=== PATIENT | male | born 1960 | race African-American/Black ===

== ENCOUNTER 2020-04-01 12:08 | Inpatient (IN) | payer OTHER ==
[2020-04-01 13:09] VITALS: BMI 26.3
[2020-04-01] MEDS ORDERED: NICOTINE POLACRILEX 2 MG GUM BUC PRN (13:17)
[2020-04-01] MEDS ORDERED: MAG HYDROX/AL HYDROX/SIMETH 30 ML UNIT-DOSE CUP PO PRN (13:17)
[2020-04-01] MEDS ORDERED: MAGNESIUM CITRATE 300 ML BOTTLE PO PRN (13:17)
[2020-04-01] MEDS ORDERED: MENTHOL/PHENOL 1 EACH UD MM PRN (13:17)
[2020-04-01] MEDS ORDERED: IBUPROFEN 400 MG TABLET (FP) PO PRN (13:17)
[2020-04-01] MEDS ORDERED: ACETAMINOPHEN 325 MG TABLET (FP) PO PRN ×2 (13:17)
[2020-04-01] MEDS ORDERED: BISMUTH SUBSALICYLATE 524 MG/30 ML UD PO PRN (13:17)
[2020-04-01] MEDS ORDERED: MAGNESIUM HYDROX 2400MG/30ML ORAL SUSPENSION 30 ML CUP PO PRN (13:17)
[2020-04-01] MEDS ORDERED: ONDANSETRON *ODT* 4 MG TABLET SL PRN (13:17)
[2020-04-01] MEDS: chlordiazePOXIDE HCL 25 MG CAPSULE PO PRN (14:54)
[2020-04-01] MEDS: IBUPROFEN 400 MG TABLET (FP) PO PRN (14:54)
[2020-04-01] MEDS: hydrOXYzine PAMOATE 25 MG CAPSULE (FP) PO SCH ×3 (14:56→22:23)
[2020-04-01] MEDS: chlordiazePOXIDE HCL 25 MG CAPSULE PO SCH ×2 (18:05→22:23)
[2020-04-01] MEDS: ALBUTEROL SO4 HFA INHALER IH PRN ×2 (18:37→22:27)
[2020-04-01] MEDS: THIAMINE HCL 100 MG TABLET (FP) PO SCH (22:23)
[2020-04-01] MEDS: MONTELUKAST NA 10 MG TABLET PO SCH (22:23)
[2020-04-01] MEDS: BUDESONIDE/FORMETEROL FUMARATE 160/4.5 mcg INHALER IH SCH (22:24)
[2020-04-01] MEDS: MELATONIN 5 MG TABLETS PO SCH (22:27)
[2020-04-02] MEDS: chlordiazePOXIDE HCL 25 MG CAPSULE PO SCH ×4 (06:31→23:27)
[2020-04-02] MEDS: hydrOXYzine PAMOATE 25 MG CAPSULE (FP) PO SCH ×3 (06:31→13:29)
[2020-04-02] MEDS: PANTOPRAZOLE 40 MG TABLET PO SCH (10:07)
[2020-04-02] MEDS: METHOCARBAMOL 500 MG TABLET PO PRN (10:07)
[2020-04-02] MEDS: LISINOPRIL 20 MG TABLET PO SCH (10:07)
[2020-04-02] MEDS: IBUPROFEN 400 MG TABLET (FP) PO PRN ×2 (10:08→19:41)
[2020-04-02] MEDS: NIFEdipine E.R. 90 MG TABLET PO SCH (10:10)
[2020-04-02] MEDS: NICOTINE 7 MG/24 HOURS TOPICAL PATCH TD SCH (10:10)
[2020-04-02] MEDS: PRENATAL VITAMINS W/ FOLIC ACID TABLET (FP) PO SCH (10:10)
[2020-04-02] MEDS: BUDESONIDE/FORMETEROL FUMARATE 160/4.5 mcg INHALER IH SCH ×2 (10:11→23:28)
[2020-04-02 10:22] LABS: HEMATOCRIT 37.5 % (35.4-49); HEMOGLOBIN 12.2 GM/dL (11.7-16.9); MCH 27.6 pg (25.7-33.7); MCHC 32.6 g/dl (32.0-35.9); MEAN CELL VOLUME 84.6 fl (80-96); MEAN PLT VOLUME 7.4 fl (7.5-11.1); PLATELET COUNT 247 K/MM3 (134-434); RBC 4.43 M/mm3 (4.00-5.60); WHITE BLOOD COUNT 3.4 K/mm3 (4.0-10.0)
[2020-04-02 10:40] LABS: ALBUMIN 3.1 g/dl (3.4-5.0); BLOOD UREA NITROGEN 10.3 mg/dL (7-18); CALCIUM 9.8 mg/dL (8.5-10.1)
[2020-04-02 10:45] LABS: BILIRUBIN,TOTAL 0.6 mg/dL (0.2-1); TOT PROT 6.1 g/dl (6.4-8.2)
[2020-04-02] MEDS ORDERED: POTASSIUM CHLORIDE ORAL LIQUID 20 MEQ/15 ML PO SCH (11:15)
[2020-04-02 11:16] LABS: HIV INTERPRETATION NEGATIVE (NEGATIVE)
[2020-04-02] MEDS: ARIPiprazole 10 MG TABLET PO SCH (13:29)
[2020-04-02] MEDS ORDERED: hydrOXYzine PAMOATE 25 MG CAPSULE (FP) PO PRN (14:46)
[2020-04-02] MEDS: ALBUTEROL SO4 2.5/IPRATROPIUM 0.5 INH SOL 3 ML VIAL.NEB. NEB PRN (17:05)
[2020-04-02] MEDS: MIRTAZAPINE 15 MG TABLET (FP) PO SCH (19:41)
[2020-04-02] MEDS: traZODone HCL 100 MG TABLET (FP) PO SCH (19:41)
[2020-04-02] MEDS: MELATONIN 5 MG TABLETS PO SCH (23:27)
[2020-04-02] MEDS: MONTELUKAST NA 10 MG TABLET PO SCH (23:28)
[2020-04-02] MEDS: THIAMINE HCL 100 MG TABLET (FP) PO SCH (23:28)
[2020-04-03] MEDS: chlordiazePOXIDE HCL 25 MG CAPSULE PO SCH ×4 (06:12→23:52)
[2020-04-03] MEDS: ALBUTEROL SO4 HFA INHALER IH PRN (06:14)
[2020-04-03] MEDS: ALBUTEROL SO4 2.5/IPRATROPIUM 0.5 INH SOL 3 ML VIAL.NEB. NEB PRN ×2 (07:34→15:53)
[2020-04-03] MEDS: BUDESONIDE/FORMETEROL FUMARATE 160/4.5 mcg INHALER IH SCH ×2 (10:00→20:01)
[2020-04-03] MEDS: ARIPiprazole 10 MG TABLET PO SCH (10:00)
[2020-04-03] MEDS: PANTOPRAZOLE 40 MG TABLET PO SCH (10:01)
[2020-04-03] MEDS: LISINOPRIL 20 MG TABLET PO SCH (10:01)
[2020-04-03] MEDS: PRENATAL VITAMINS W/ FOLIC ACID TABLET (FP) PO SCH (10:01)
[2020-04-03] MEDS: NIFEdipine E.R. 90 MG TABLET PO SCH (10:01)
[2020-04-03] MEDS: NICOTINE 7 MG/24 HOURS TOPICAL PATCH TD SCH (10:01)
[2020-04-03 10:23] LABS: HEMATOCRIT 38.5 % (35.4-49); HEMOGLOBIN 12.6 GM/dL (11.7-16.9); MCH 27.3 pg (25.7-33.7); MCHC 32.6 g/dl (32.0-35.9); MEAN CELL VOLUME 83.7 fl (80-96); MEAN PLT VOLUME 7.6 fl (7.5-11.1); PLATELET COUNT 258 K/MM3 (134-434); RDW 14.7 % (11.9-15.9); WHITE BLOOD COUNT 3.6 K/mm3 (4.0-10.0)
[2020-04-03] MEDS: FLUTICASONE PROP 0.05% 16 GM NASAL SPRAY NS SCH ×2 (13:11→23:52)
[2020-04-03] MEDS: MIRTAZAPINE 15 MG TABLET (FP) PO SCH (20:01)
[2020-04-03] MEDS: chlordiazePOXIDE HCL 25 MG CAPSULE PO PRN (20:01)
[2020-04-03] MEDS: traZODone HCL 100 MG TABLET (FP) PO SCH (20:01)
[2020-04-03] MEDS: MONTELUKAST NA 10 MG TABLET PO SCH (20:01)
[2020-04-03] MEDS: MELATONIN 5 MG TABLETS PO SCH (23:52)
[2020-04-03] MEDS: THIAMINE HCL 100 MG TABLET (FP) PO SCH (23:54)
[2020-04-04] MEDS ORDERED: chlordiazePOXIDE HCL 10 MG CAPSULE PO PRN
[2020-04-04] MEDS: chlordiazePOXIDE HCL 10 MG CAPSULE PO SCH ×4 (06:36→23:39)
[2020-04-04] MEDS: ARIPiprazole 10 MG TABLET PO SCH (10:24)
[2020-04-04] MEDS: FLUTICASONE PROP 0.05% 16 GM NASAL SPRAY NS SCH ×2 (10:24→23:39)
[2020-04-04] MEDS: LISINOPRIL 20 MG TABLET PO SCH (10:24)
[2020-04-04] MEDS: BUDESONIDE/FORMETEROL FUMARATE 160/4.5 mcg INHALER IH SCH ×2 (10:24→23:40)
[2020-04-04] MEDS: NIFEdipine E.R. 90 MG TABLET PO SCH (10:25)
[2020-04-04] MEDS: PRENATAL VITAMINS W/ FOLIC ACID TABLET (FP) PO SCH (10:25)
[2020-04-04] MEDS: NICOTINE 7 MG/24 HOURS TOPICAL PATCH TD SCH (10:25)
[2020-04-04] MEDS: PANTOPRAZOLE 40 MG TABLET PO SCH (10:25)
[2020-04-04] MEDS: IBUPROFEN 400 MG TABLET (FP) PO PRN (11:16)
[2020-04-04] MEDS: METHOCARBAMOL 500 MG TABLET PO PRN (11:16)
[2020-04-04] MEDS: ALBUTEROL SO4 HFA INHALER IH PRN (17:25)
[2020-04-04] MEDS: traZODone HCL 100 MG TABLET (FP) PO SCH (19:58)
[2020-04-04] MEDS: MIRTAZAPINE 15 MG TABLET (FP) PO SCH (19:58)
[2020-04-04] MEDS: MONTELUKAST NA 10 MG TABLET PO SCH (20:00)
[2020-04-04] MEDS: MELATONIN 5 MG TABLETS PO SCH (23:39)
[2020-04-04] MEDS: THIAMINE HCL 100 MG TABLET (FP) PO SCH (23:40)
[2020-04-05] MEDS: chlordiazePOXIDE HCL 10 MG CAPSULE PO SCH ×2 (06:46→17:19)
[2020-04-05] MEDS: IBUPROFEN 400 MG TABLET (FP) PO PRN ×2 (07:02→14:56)
[2020-04-05] MEDS: METHOCARBAMOL 500 MG TABLET PO PRN ×2 (07:02→14:56)
[2020-04-05] MEDS: ALBUTEROL SO4 HFA INHALER IH PRN (07:11)
[2020-04-05] MEDS: PANTOPRAZOLE 40 MG TABLET PO SCH (10:12)
[2020-04-05] MEDS: ARIPiprazole 10 MG TABLET PO SCH (10:12)
[2020-04-05] MEDS: PRENATAL VITAMINS W/ FOLIC ACID TABLET (FP) PO SCH (10:12)
[2020-04-05] MEDS: LISINOPRIL 20 MG TABLET PO SCH (10:12)
[2020-04-05] MEDS: BUDESONIDE/FORMETEROL FUMARATE 160/4.5 mcg INHALER IH SCH ×2 (10:13→23:27)
[2020-04-05] MEDS: FLUTICASONE PROP 0.05% 16 GM NASAL SPRAY NS SCH ×2 (10:14→23:27)
[2020-04-05] MEDS: NICOTINE 7 MG/24 HOURS TOPICAL PATCH TD SCH (10:15)
[2020-04-05] MEDS: NIFEdipine E.R. 90 MG TABLET PO SCH (11:18)
[2020-04-05] MEDS: ALBUTEROL SO4 2.5/IPRATROPIUM 0.5 INH SOL 3 ML VIAL.NEB. NEB PRN (19:45)
[2020-04-05] MEDS: traZODone HCL 100 MG TABLET (FP) PO SCH (20:26)
[2020-04-05] MEDS: MIRTAZAPINE 15 MG TABLET (FP) PO SCH (20:26)
[2020-04-05] MEDS: MELATONIN 5 MG TABLETS PO SCH (23:27)
[2020-04-05] MEDS: MONTELUKAST NA 10 MG TABLET PO SCH (23:27)
[2020-04-05] MEDS: THIAMINE HCL 100 MG TABLET (FP) PO SCH (23:28)
[2020-04-06] MEDS ORDERED: chlordiazePOXIDE HCL 10 MG CAPSULE PO ONE (05:00)
[2020-04-06] MEDS: ALBUTEROL SO4 HFA INHALER IH PRN (06:11)
[2020-04-06] MEDS: ALBUTEROL SO4 2.5/IPRATROPIUM 0.5 INH SOL 3 ML VIAL.NEB. NEB PRN (06:25)
[2020-04-06 06:48] VITALS: BP 119/63; PULSE 63; TEMP 97.5
[2020-04-06] MEDS: IBUPROFEN 400 MG TABLET (FP) PO PRN (07:28)
[2020-04-06] MEDS: METHOCARBAMOL 500 MG TABLET PO PRN (07:28)
== END 2020-04-06 09:02 | disposition home or self-care (01) | DRG 897 ==
LOC: YASAS 12:08 → Y6N 13:37
PROVIDERS: ADMIT Allergy & Immunology; ATTEND Allergy & Immunology
PROC: HZ2ZZZZ Detoxification Services for Substance Abuse Treatment (ICD-10-PCS; principal; 2020-04-01)
DX: F10.230 Alcohol dependence with withdrawal, uncomplicated (principal); F14.20 Cocaine dependence, uncomplicated; F19.282 Other psychoactive substance dependence with psychoactive substance-induced sleep disorder; F19.280 Other psychoactive substance dependence with psychoactive substance-induced anxiety disorder; F31.64 Bipolar disorder, current episode mixed, severe, with psychotic features; F17.210 Nicotine dependence, cigarettes, uncomplicated; F25.9 Schizoaffective disorder, unspecified; G47.00 Insomnia, unspecified; I10 Essential (primary) hypertension; J45.20 Mild intermittent asthma, uncomplicated; K21.9 Gastro-esophageal reflux disease without esophagitis; M54.5 Low back pain; R76.11 Nonspecific reaction to tuberculin skin test without active tuberculosis; Z98.890 Other specified postprocedural states; Z56.0 Unemployment, unspecified; Z59.0 Homelessness
CPT/HCPCS: 36415; 71046-TC-FY; 80053; 82947; 85027; 86780; 87389; 93005; 93010; 94640; C9803; U0003